=== PATIENT | female | born 1980 | race African-American/Black ===

== ENCOUNTER 2023-03-15 12:53 | Emergency (ER) | payer MEDICAID ==
[~2023-03-15] VITALS: Ht 175.3 cm; Wt 61.0 kg
[2023-03-15 12:56] VITALS: BP 121/71
[2023-03-15] MEDS ORDERED: ONDANSETRON HCL 4MG/2ML INJ IV STA (13:32)
[2023-03-15 13:40] LABS: HEMATOCRIT. 27.2 % (36.0-48.0); HEMOGLOBIN. 8.6 g/dL (12.0-16.0); MEAN CORPUSCULAR HEMOGLOBIN 18.5 pg (28.0-32.0); MEAN CORPUSCULAR VOLUME 58.5 fL (81.0-99.0); MEAN PLATELET VOLUME 8.5 fl (7.4-10.4); PLATELET 299 x1000/uL (130-400); RED BLOOD CELL COUNT 4.64 mill/uL (4.2-5.4); RED CELL DISTRIBUTION WIDTH 23.2 % (11.6-14.6)
[2023-03-15 13:45] LABS: CHLORIDE 109 mEq/L (98-107)
[2023-03-15] MEDS ORDERED: SODIUM CHLORIDE 0.9% 1,000 ML IV ONE (13:45)
[2023-03-15 13:49] LABS: HCG SCREEN NEGATIVE
[2023-03-15 13:54] LABS: ETHANOL BLOOD < 10 mg/dL; INR 1.1; PROTHROMBIN TIME 11.4 sec (9.6-11.0)
[2023-03-15 14:14] LABS: PLATELET ESTIMATE NORMAL
[2023-03-15] MEDS ORDERED: OMEP40CA20 MT (18:27)
== END 2023-03-15 18:40 | disposition home or self-care (01) ==
LOC: ER 12:53
DX: R10.12 Left upper quadrant pain (principal); Z86.39 Personal history of other endocrine, nutritional and metabolic disease
CPT/HCPCS: 36415; 74176; 80053; 80320; 83690; 84703; 85025; 85610; 96361; 96374; 99285; J2405; J7030; Z7610; G0480